=== PATIENT | female | born 1965 | race American Indian/Alaskan Native ===

== ENCOUNTER 2018-06-08 15:03 | Emergency (ER) | payer MEDICAID, OTHER ==
--- NOTE | 2018-06-08 15:29 | Emergency Department Report ---
Chief Complaint: Medical Clearance Stated Complaint: PLACEMENT/NOT EATING Time Seen by Provider: 06/08/18 15:24 - HPI History of Present Illness: Pts daughter states she is at baseline Pts daughter states she is here today to find fdc placement for her mother pts daughter states she has not been wanting to eat Pts daughter says she is on namenda,memantine, venlafaxine, zyprexa Pts daughter states she has bipolar, schizophrenia, dementia MSE complete MSE screening note: Focused history and physical exam performed. Due to findings the following was ordered: psych protocol ED Disposition for MSE Condition: Stable
[2018-06-08] MEDS ORDERED: GEODON IM ONE (16:06)
--- NOTE | 2018-06-08 16:06 | Emergency Department Report ---
ED Psych HPI - General Chief Complaint: Medical Clearance Stated Complaint: PLACEMENT/NOT EATING Time Seen by Provider: 06/08/18 15:24 Source: patient Mode of arrival: Ambulatory - History of Present Illness Initial Comments: Patient is 52 years old female with history of dementia since age 46 with multiple episode of dementia psychosis according to the patient daughter. Heide nt brought to the emergency room by her daughter for aggressive behavior and hitting other people. Patient walk without a specific direction. There is stated that patient has been taking Zyprexa with no improvement. Patient daughter stated that patient is danger to herself and to others. Complaint: altered mental status - Related Data Home Medications Medication Instructions Recorded Confirmed Last Taken Donepezil HCl 10 mg PO DAILY 01/16/15 01/24/15 01/23/15 09:00 Ferrous Sulfate 325 mg PO DAILY 01/16/15 01/24/15 01/23/15 09:00 Memantine HCl [Namenda Xr] 28 mg PO DAILY 01/16/15 01/24/15 01/23/15 09:00 Previous Rx's Medication Instructions Recorded Last Taken Type HYDROcodone/APAP 5-325 [[place] 1 each PO Q6H PRN #30 tablet 01/25/15 Unknown Rx 5-325 mg TAB] Allergies Allergy/AdvReac Type Severity Reaction Status Date / Time carbamazepine [From Tegretol] Allergy Rash Verified 06/08/18 15:16 seafood Allergy Anaphylaxis Uncoded 01/16/15 11:53 ED Review of Systems ROS: Stated complaint: PLACEMENT/NOT EATING Other details as noted in HPI Comment: Unobtainable due to pts medical conditions ED Past Medical Hx - Past Medical History Hx Hypertension: No Hx Congestive Heart Failure: No Hx Diabetes: No Hx Renal Disease: No Hx Sickle Cell Disease: No Hx Psychiatric Treatment: Yes (bipolar,schizo) Hx Asthma: No Hx COPD: No Hx Dementia: Yes - Surgical History Additional Surgical History: hysterectomy - Social History Smoking Status: Never Smoker Substance Use Type: None - Medications Home Medications: Home Medications Medication Instructions Recorded Confirmed Last Taken Type Donepezil HCl 10 mg PO DAILY 01/16/15 01/24/15 01/23/15 09:00 History Ferrous Sulfate 325 mg PO DAILY 01/16/15 01/24/15 01/23/15 09:00 History Memantine HCl [Namenda Xr] 28 mg PO DAILY 01/16/15 01/24/15 01/23/15 09:00 History HYDROcodone/APAP 5-325 [[place] 1 each PO Q6H PRN #30 tablet 01/25/15 Unknown Rx 5-325 mg TAB] ED Physical Exam - General Limitations: No Limitations General appearance: alert, in no apparent distress, other (agitated) - Head Head exam: Present: atraumatic, normocephalic, normal inspection - Eye Eye exam: Present: normal appearance, PERRL - ENT ENT exam: Present: normal exam, normal orophraynx, mucous membranes moist - Neck Neck exam: Present: normal inspection, full ROM. Absent: tenderness, meningismus, lymphadenopathy, thyromegaly - Respiratory Respiratory exam: Present: normal lung sounds bilaterally. Absent: respiratory distress, wheezes, rales, rhonchi, chest wall tenderness, decreased breath sounds, prolonged expiratory - Cardiovascular Cardiovascular Exam: Present: regular rate, normal rhythm, normal heart sounds - GI/Abdominal GI/Abdominal exam: Present: soft. Absent: distended, tenderness, guarding, rebound - Extremities Exam Extremities exam: Present: normal inspection, full ROM, normal capillary refill - Back Exam Back exam: Present: normal inspection - Neurological Exam Neurological exam: Present: alert, altered, CN II-XII intact, normal gait - Psychiatric Psychiatric exam: Present: agitated, anxious. Absent: homicidal ideation, suicidal ideation - Skin Skin exam: Present: warm, intact, normal color ED Course Vital Signs 06/08/18 15:25 Temperature 97.4 F L Pulse Rate 105 H Respiratory 20 Rate Blood Pressure 149/74 O2 Sat by Pulse 97 Oximetry ED Medical Decision Making - Lab Data Result diagrams: 06/08/18 15:37 06/08/18 15:37 - Medical Decision Making Patient is 52 years old female with history of dementia since age 46 with multiple episode of dementia psychosis according to the patient daughter. Patient brought to the emergency room by her daughter for aggressive behavior and hitting other people. Patient walk without a specific direction. There is stated that patient has been taking Zyprexa with no improvement. Patient daughter stated that patient is danger to herself and to others. Patient has been evaluated by our mental health pending inpatient psychiatric placement. Patient is medically clear. Critical care attestation.: If time is entered above; I have spent that time in minutes in the direct care of this critically ill patient, excluding procedure time. ED Disposition Clinical Impression: Acute psychosis, Dementia Disposition: [id number]/TX-[facility] PSY HOSP/PSY UNIT Is pt being admited?: No Condition: Stable Referrals: CASTILLO MELARA MD [Primary Care Provider] - 3-5 Days
[2018-06-08 16:12] LABS: Alanine Aminotransferase 27 units/L (7-56); Albumin 3.8 g/dL (3.9-5); BUN/Creatinine Ratio 19; Blood Urea Nitrogen 13 mg/dL (7-17); Calcium 9.7 mg/dL (8.4-10.2); Hemolysis Index 62
[2018-06-08 16:13] LABS: Basophils # (Auto) 0.1 K/mm3 (0.0-0.1); Basophils % (Auto) 0.5 % (0.0-1.8); Eosinophils # (Auto) 0.1 K/mm3 (0.0-0.4); Eosinophils % (Auto) 0.8 % (0.0-4.3); Hematocrit 36.7 % (30.3-42.9); Lymphocytes # (Auto) 3.9 K/mm3 (1.2-5.4); Lymphocytes % (Auto) 28.6 % (13.4-35.0); Mean Corpuscular HGB Conc 33 % (30-34); Mean Corpuscular Volume 92 fl (79-97); Monocytes # (Auto) 0.7 K/mm3 (0.0-0.8); Monocytes % (Auto) 5.5 % (0.0-7.3); Platelet Count 347 K/mm3 (140-440); Red Blood Count 4.01 M/mm3 (3.65-5.03); Red Cell Distribution Width 15.9 % (13.2-15.2)
[2018-06-09 01:06] LABS: Amorphous Crystals,Urine 1+; Bilirubin,Urine NEG (Negative); Blood,Urine SM (Negative); Color,Urine Yellow (Yellow); Mucus,Urine FEW /HPF; Protein,Urine <15 mg/dL mg/dL (Negative)
[2018-06-09 01:07] LABS: Amphetamine Screen,Urine PRESUMPTIVE NEGATIVE; Benzodiazepines Screen,Urine PRESUMPTIVE NEGATIVE; Cannabinoid Screen,Urine PRESUMPTIVE NEGATIVE; Cocaine Screen,Urine PRESUMPTIVE NEGATIVE; Methadone Screen,Urine PRESUMPTIVE NEGATIVE; Opiate Screen,Urine PRESUMPTIVE NEGATIVE
--- NOTE | 2018-06-09 09:45 | Consultation ---
History of Present Illness - Reason for Consult Consult date: 06/09/18 Reason for consult: Mental Healt Evaluation Requesting physician: SHILPI KIM - Chief Complaint Chief complaint: "The patient mumbles" - History of Present Psychiatric Illness 52 years old AA female who presented to the ER for bizarre behavior.Today the patient is calm, but disorganized during the assessment. She could not answers any questions asked of her. The patient was placed in the seclusion room prior to the interview. The patient isn't a good historian at this time. Medications and Allergies Allergies Allergy/AdvReac Type Severity Reaction Status Date / Time carbamazepine [From Tegretol] Allergy Rash Verified 06/08/18 15:16 seafood Allergy Anaphylaxis Uncoded 01/16/15 11:53 Home Medications Medication Instructions Recorded Confirmed Last Taken Type Donepezil HCl 10 mg PO DAILY 01/16/15 01/24/15 01/23/15 09:00 History Ferrous Sulfate 325 mg PO DAILY 01/16/15 01/24/15 01/23/15 09:00 History Memantine HCl [Namenda Xr] 28 mg PO DAILY 01/16/15 01/24/15 01/23/15 09:00 History HYDROcodone/APAP 5-325 [[place] 1 each PO Q6H PRN #30 tablet 01/25/15 Unknown Rx 5-325 mg TAB] Past psychiatric history - Past Medical History Past Medical History: other (Unable to obtain ) Past Surgical History: Other (Unable to obtain ) - past Psychiatric treatment and history psychiatric treatment history: Unable to obtain a psy hx and a fam psy hx. - Social History Social history: lives with family Mental Status Exam - Vital signs Last Vital Signs Temp 97.4 F L 06/09/18 02:00 Pulse 69 06/09/18 02:00 Resp 18 06/09/18 02:00 BP 126/68 06/09/18 02:00 Pulse Ox 100 06/09/18 02:00 - Exam Narrative exam: Unable to complete the MSE because of the patient's condition. Results Result Diagrams: 06/08/18 15:37 06/08/18 15:37 Abnormal lab results 06/08/18 06/08/18 06/08/18 Range/Units 15:37 15:37 15:37 WBC 13.7 H (4.5-11.0) K/mm3 RDW 15.9 H (13.2-15.2) % Seg Neutrophils # 8.9 H (1.8-7.7) K/mm3 Glucose 147 H (65-100) mg/dL Albumin 3.8 L (3.9-5) g/dL Salicylates < 0.3 L (2.8-20.0) mg/dL Acetaminophen (10.0-30.0) ug/mL 06/08/18 Range/Units 15:37 WBC (4.5-11.0) K/mm3 RDW (13.2-15.2) % Seg Neutrophils # (1.8-7.7) K/mm3 Glucose (65-100) mg/dL Albumin (3.9-5) g/dL Salicylates (2.8-20.0) mg/dL Acetaminophen < 5.0 L (10.0-30.0) ug/mL All other labs normal. Assessment and Plan Assessment and plan: Impression: Unspecified Psychosis. Today the patient mumbles during during the assessment. UDS is negative. DDx: Per the record Dementia Recommendation/Plan: Continue 1013 and gather collateral information to determine proper treatment. Called and left a voicemail for the patient's sister Yuni Monzon at [phone] to gather collateral information. Dipso: The patient was referred to inpatient psy services Will staff with Dr Ann-Marie Mora.
[2018-06-09 13:23] VITALS: BP 131/62
== END 2018-06-09 14:45 ==
LOC: EEVIPCON 15:03 → ED 15:03
DX: F29 Unspecified psychosis not due to a substance or known physiological condition (principal); F03.90 Unspecified dementia, unspecified severity, without behavioral disturbance, psychotic disturbance, mood disturbance, and anxiety; F31.9 Bipolar disorder, unspecified; F20.9 Schizophrenia, unspecified; Z90.710 Acquired absence of both cervix and uterus; Z79.899 Other long term (current) drug therapy; Z91.013 Allergy to seafood; Z88.8 Allergy status to other drugs, medicaments and biological substances
CPT/HCPCS: 36415; 80053; 80307; 81001; 85025; 93005; 93010; 96372; 99285; G0480; J3486; 80320